=== PATIENT | female | born 1995 | race Caucasian/White ===

== ENCOUNTER 2017-03-18 12:01 | Outpatient (CLI) | payer OTHER ==
[2017-03-18 12:45] LABS: HEMATOCRIT 35.2 % (36-48); HEMOGLOBIN 10.5 g/dL (12.0-16.0); MEAN CORPUSCULAR HEMOGLOBIN 20 pg (27-31); MEAN CORPUSCULAR HGB CONC 30 g/dL (33-37); MEAN CORPUSCULAR VOLUME 66 fL (80-94); PLATELET COUNT (AUTO) 370 K/uL (140-450); RED CELL DISTRIBUTION WIDTH 18.8 % (11.6-13.7); WHITE BLOOD COUNT (AUTO) 5.2 K/uL (4.8-10.8)
[2017-03-18 12:48] LABS: APPEARANCE,URINE CLOUDY (CLEAR); BILIRUBIN,URINE NEGATIVE (NEGATIVE); BLOOD, URINE TRACE-I (NEGATIVE); COLOR,URINE YELLOW (YELLOW); LEUKOCYTE ESTERASE ,URINE 2+ (NEGATIVE); NITRITE, URINE NEGATIVE (NEGATIVE); PROTEIN,URINE 1+ (NEGATIVE); UGLUCOSE NEGATIVE (NEGATIVE); UROBILINOGEN,URINE 0.2 EU/dL (0.2 - 1)
[2017-03-18 13:15] LABS: BACTERIA,URINE 1+ /HPF (None Seen)
[2017-03-18 13:16] LABS: MUCUS,URINE 2+ /LPF (None Seen)
[2017-03-18 13:34] LABS: ANION GAP 10.9 (8-16); CALCIUM 8.5 mg/dL (8.5-10.1)
[2017-03-18 13:35] LABS: ALBUMIN 3.3 g/dL (3.4-5.0); CHOL/HDL RATIO 3.8 (1-4.5); CREATININE 0.7 mg/dL (0.6-1.3); MAGNESIUM 2.1 mg/dL (1.8-2.4); THYROID STIMULATING HORMONE 0.83 uIU/mL (0.34-3.76); TOTAL BILIRUBIN 0.4 mg/dL (0.0-1.0)
[2017-03-18 13:39] LABS: POTASSIUM 2.9 mmol/L (3.5-5.1)
[2017-03-18 13:49] LABS: ANISOCYTOSIS 1+; BAND % (MANUAL) 24 % (0-8); HYPOCHROMASIA 1+; LYMPHOCYTES % (MANUAL) 17 % (20-46); MONOCYTES % (MANUAL) 19 % (5-12); NEUTROPHILS % (MANUAL) 40 (43-65); POIKILOCYTOSIS 1+
[2017-03-18 14:48] LABS: RETICULOCYTE COUNT 1.6 % (0.5-1.5)
[2017-03-19 15:09] LABS: HEMOGLOBIN A1C 5.1 % (4.8-5.6)
[2017-03-19 18:19] LABS: VITAMIN D, 25-HYDROXY 16.8 ng/mL (30.0-100.0)
== END 2017-03-18 19:42 | disposition home or self-care (01) ==
LOC: MLB 12:01
PROVIDERS: ATTEND Specialist
DX: Z00.01 Encounter for general adult medical examination with abnormal findings (principal); E83.42 Hypomagnesemia; E87.6 Hypokalemia; E83.51 Hypocalcemia; D50.9 Iron deficiency anemia, unspecified
CPT/HCPCS: 36415; 80053; 81001; 82306; 82728; 83036; 83540; 83735; 84100; 84443; 85025; 85045; 87086

== ENCOUNTER 2017-05-10 14:08 | Emergency (ER) | payer OTHER ==
[~2017-05-10] VITALS: Ht 149.9 cm; Wt 36.3 kg
[2017-05-10 14:28] VITALS: BP 97/68
[2017-05-10 16:12] LABS: APPEARANCE,URINE HAZY (CLEAR); BILIRUBIN,URINE NEGATIVE (NEGATIVE); BLOOD, URINE 2+ (NEGATIVE); COLOR,URINE YELLOW (YELLOW); LEUKOCYTE ESTERASE ,URINE 2+ (NEGATIVE); NITRITE, URINE NEGATIVE (NEGATIVE); PH,URINE 6.5 (5.0-9.0); PROTEIN,URINE NEGATIVE (NEGATIVE); UGLUCOSE NEGATIVE (NEGATIVE); UROBILINOGEN,URINE 0.2 EU/dL (0.2 - 1)
--- NOTE | 2017-05-10 16:15 | NUR ---
PATIENT AMBULATED TO ER BED 4.
--- NOTE | 2017-05-10 16:26 | NUR ---
DR BALES AT BEDSIDE.
--- NOTE | 2017-05-10 16:26 | NUR ---
PATIENT BEING EVALUATED BY DR. BALES.
[2017-05-10 16:30] LABS: RBC,URINE 0-5 /HPF (0-5)
--- NOTE | 2017-05-10 16:30 | NUR ---
PATIENT PRESENTS TO ED WITH BIB FAMILY C/O ABDOMILA PAIN AND BEE STING x LAST NIGHT. PAIN 7/10 ABDOMINAL PAIN NON-RADIATING.HX OF ANEMIA;MEDS: IRON AND POTASSIUM SUPPLEMENT. DENIES N/V/D; SKIN IS PINK/WARM/DRY; AAOX4 WITH EVEN AND STEADY GAIT; LUNGS CLEAR BL; HR EVEN AND REGULAR; PT DENIES ANY FEVER, CP, SOB, OR COUGH AT THIS TIME; PATIENT STATES PAIN OF 4/10 AT THIS TIME;PATIENT POSITIONED FOR COMFORT; HOB ELEVATED; BEDRAILS UP X2; BED DOWN. ALL MONITORS IN PLACED.
[2017-05-10 16:31] LABS: BACTERIA,URINE 1+ /HPF (None Seen)
[2017-05-10] MEDS ORDERED: DICYCLOMINE HCL LIQUID 10 MG/5 ML UDC PO ONE (16:40)
[2017-05-10] MEDS ORDERED: LIDOCAINE VISCOUS 2% 20 ML UDC PO ONE (16:40)
[2017-05-10] MEDS ORDERED: ALUMINUM HYD/MAG/SIMETHICONE 30 ML UDC PO ONE (16:40)
--- NOTE | 2017-05-10 17:07 | NUR ---
DR BALES AT BEDSIDE.
[2017-05-10 17:20] VITALS: BP 126/68
--- NOTE | 2017-05-10 17:20 | NUR ---
Patient discharged with v/s stable. Written and verbal after care instructions given and explained. Patient alert, oriented and verbalized understanding of instructions. Ambulatory with steady gait. All questions addressed prior to discharge. ID band removed. Patient advised to follow up with PMD. Rx of MACROBID AND OMEPRAZOLE given. Patient educated on indication of medication including possible reaction and side effects. Opportunity to ask questions provided and answered.
== END 2017-05-10 17:20 | disposition home or self-care (01) ==
LOC: MED 14:08
DX: N39.0 Urinary tract infection, site not specified (principal); R10.13 Epigastric pain; E87.6 Hypokalemia; D64.9 Anemia, unspecified
CPT/HCPCS: 81001; 81025; 87086; 99284

== ENCOUNTER 2018-06-26 08:53 | Observation (INO) | payer OTHER ==
[2018-06-26 08:45] VITALS: BP 97/56
== END 2018-06-26 10:20 | disposition home or self-care (01) ==
LOC: MLD 08:53
PROVIDERS: ADMIT Obstetrics & Gynecology; ATTEND Obstetrics & Gynecology
DX: O26.899 Other specified pregnancy related conditions, unspecified trimester (principal); R10.9 Unspecified abdominal pain; Z3A.00 Weeks of gestation of pregnancy not specified
CPT/HCPCS: 81000; G0378

== ENCOUNTER 2018-07-21 21:35 | Observation (INO) | payer OTHER ==
[~2018-07-21] VITALS: Ht 149.9 cm; Wt 44.9 kg
[2018-07-21] MEDS ORDERED: ACET-2619 PO (22:50)
[2018-07-21] MEDS ORDERED: PREN-546 PO (22:50)
== END 2018-07-21 22:57 | disposition left against medical advice (07) ==
LOC: MLD 21:35
PROVIDERS: ADMIT Obstetrics & Gynecology; ATTEND Obstetrics & Gynecology
DX: O26.893 Other specified pregnancy related conditions, third trimester (principal); R10.9 Unspecified abdominal pain; Z3A.34 34 weeks gestation of pregnancy
CPT/HCPCS: G0378